=== PATIENT | female | born 2000 | race Caucasian/White ===

== ENCOUNTER 2022-11-13 10:44 | Emergency (ER) | payer OTHER ==
[2022-11-13 11:35] LABS: Absolute Lymphocytes (CBC) 1.5 K/uL (0.7-4.9); Hematocrit 38.8 % (36.0-45.0); Lymphocytes % 21.7 % (15.3-44.8); MCV 86.1 fL (80-100); MPV 8.1 fL (7.6-11.3); RBC Red Blood Cell Count 4.51 M/uL (3.86-4.86)
[2022-11-13 11:38] LABS: Urine Blood Negative (Negative); Urine Glucose Negative (Negative); Urine Protein Negative (Negative); Urine Specific Gravity 1.015 (1.005-1.030); Urine pH 6.5 (5.0-7.0)
[2022-11-13 11:44] LABS: Albumin 4.1 g/dL (3.4-5.0); Bilirubin Total 0.5 mg/dL (0.2-1.0); Potassium 3.6 mmol/L (3.5-5.1)
[2022-11-13 12:20] LABS: Urine Specific Gravity/Preg 1.015 (1.005-1.030)
--- NOTE | 2022-11-13 13:29 | RAD REPORT ---
EXAM DESCRIPTION: CTAbdomen Pelvis W Contrast - 11/13/2022 1:21 pm CLINICAL HISTORY: Abdominal pain. ABD PAIN COMPARISON: No comparisons TECHNIQUE: Biphasic CT imaging of the abdomen and pelvis was performed with 100 ml non-ionic IV cont rast. All CT scans are performed using dose optimization technique as appropriate and may include automated exposure control or mA/KV adjustment according to patient size. FINDINGS: The lung bases are clear. The liver, spleen, pancreas, adrenal glands and kidneys are within normal limits. 20 mm cyst superome dial pole left kidney. No bowel obstruction, free air, free fluid or abscess. There is a large amount of stool in the colon. The appendix is not identified as a discrete structure, however, no secondary findings of appendicit is are identified. No evidence of significant lymphadenopathy. No suspicious bony findings. IMPRESSION: No acute intra-abdominal or pelvic finding. Significant constipation.
--- NOTE | 2022-11-13 14:19 | EDPHYS ---
Physician Documentation [facility] Name: Ashwini Walden Age: 21 yrs Sex: Female : 2000 Arrival Date: 11/13/2022 Time: 10:46 Bed 19 Private MD: ED Physician Tyron Arteaga Historical: - Allergies: 11/13 11:04 No Known Allergies; aa5 - PMHx: 11:04 None; aa5 - PSHx: 11:04 None; aa5 - Immunization history:: Adult Immunizations unknown. - Social history:: Smoking status: Patient denies any tobacco usage or history of. Vital Signs: 11:03 BP 132 / 79; Pulse 57; Resp 16 S; Temp 97.7(TE); Pulse Ox 100% on R/A; Weight 52.16 kg aa5 (R); Height 5 ft. 8 in. (R); 12:41 BP 128 / 73; Pulse 60; Resp 18 S; Pulse Ox 100% on R/A; Pain 0/10; kc6 14:03 BP 123 / 83; Pulse 65; Resp 19 S; Pulse Ox 100% on R/A; kc6 11:03 Body Mass Index 17.49 (52.16 kg, 172.72 cm) aa5 12:41 Pain Scale: Adult kc6 MDM: 14:19 Patient medically screened. kdr 11/13 11:03 Order name: CBC with Diff; Complete Time: 11:52 kdr 11/13 11:03 Order name: CMP; Complete Time: 11:52 kdr 11/13 11:03 Order name: Lipase; Complete Time: 11:52 kdr 11/13 11:03 Order name: IV Saline Lock; Complete Time: 11:24 kdr 11/13 11:03 Order name: Labs collected and sent; Complete Time: 11:24 kdr 11/13 11:38 Order name: Urine Dipstick-Ancillary; Complete Time: 11:52 EDMS 11/13 11:45 Order name: Urine --Ancillary (enter results); Complete Time: 13:02 bd 11/13 13:03 Order name: CT Abd/Pelvis - IV Contrast Only; Complete Time: 14:18 kdr Administered Medications: No medications were administered Disposition Summary: 11/13/22 14:19 Discharge Ordered Location: Home kdr Problem: new kdr Symptoms: have improved kdr Condition: Stable kdr Diagnosis - Abdominal pain, Generalized kdr - Constipation kdr Followup: kdr - With: Private Physician - When: 2 - 3 days - Reason: If symptoms return, Further diagnostic work-up, Recheck today's complaints, Continuance of care, Re-evaluation by your physician Forms: - Medication Reconciliation Form kdr - Thank You Letter kdr - Antibiotic Education kdr - Prescription Opioid Use kdr Signatures: Dispatcher [employer] EDMS Tyron Arteaga MD MD kdr Beatriz Perdomo RN RN aa5 Corrections: (The following items were deleted from the chart) 11:04 11:04 Allergies: Aspirin; aa5 aa5
--- NOTE | 2022-11-13 14:19 | ER ---
Nurse's Notes [facility] Name: Ashwini Walden Age: 21 yrs Sex: Female : 2000 Arrival Date: 11/13/2022 Time: 10:46 Bed 19 Private MD: Diagnosis: Abdominal pain, Generalized;Constipation Presentation: 11/13 11:03 Chief complaint: Patient states: sent here from urgent care for abd pain and nausea. 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 Coronavirus screen: nausea. Ebola Screen: Patient denies travel to an Ebola-affected area in the 21 days before illness onset. Initial Sepsis Screen: Does the patient meet any 2 criteria? No. Patient's initial sepsis screen is negative. Does the patient have a suspected source of infection? No. Patient's initial sepsis screen is negative. Risk Assessment: Do you want to hurt yourself or someone else? Patient reports no desire to harm self or others. Onset of symptoms was October 2022. 11:03 Acuity: TARUN 3 aa5 11:03 Method Of Arrival: Ambulatory aa5 Historical: - Allergies: 11:04 No Known Allergies; aa5 - PMHx: 11:04 None; aa5 - PSHx: 11:04 None; aa5 - Immunization history:: Adult Immunizations unknown. - Social history:: Smoking status: Patient denies any tobacco usage or history of. Screenin:40 [facility] ED Fall Risk Assessment (Adult) History of falling in the last 3 months, kc6 including since admission No falls in past 3 months (0 pts) Confusion or Disorientation No (0 pts) Intoxicated or Sedated No (0 pts) Impaired Gait No (0 pts) Mobility Assist Device Used No (0 pt) Altered Elimination No (0 pt) Score/Fall Risk Level 0 - 2 = Low Risk Oriented to surroundings, Maintained a safe environment, Educated pt \T\ family on fall prevention, incl call for assistance when getting out of bed, Assessed \T\ reinforced patient's understanding of fall precautions, Hourly rounding (assess needs \T\ fall precautionary measures) done. Abuse screen: Denies threats or abuse. Denies injuries from another. Nutritional screening: No deficits noted. Tuberculosis screening: No symptoms or risk factors identified. Assessment: 12:40 General: Appears in no apparent distress. comfortable, Behavior is calm, cooperative, kc6 appropriate for age. Pain: Denies pain. Neuro: Level of Consciousness is awake, alert, obeys commands, Oriented to person, place, time, situation, Appropriate for age. Cardiovascular: Capillary refill < 3 seconds. Respiratory: Airway is patent Trachea midline Respiratory effort is even, unlabored, Respiratory pattern is regular, symmetrical. GI: Abdomen is flat, non-distended, Bowel sounds present X 4 quads. Abd is soft and non tender X 4 quads. Reports nausea, Patient currently denies diarrhea, vomiting. : No signs and/or symptoms were reported regarding the genitourinary system. EENT: No signs and/or symptoms were reported regarding the EENT system. Derm: No signs and/or symptoms reported regarding the dermatologic system. Skin is intact, Skin is pink, warm \T\ dry. Musculoskeletal: No signs and/or symptoms reported regarding the musculoskeletal system. Circulation, motion, and sensation intact. Capillary refill < 3 seconds, Range of motion: intact in all extremities. 13:40 Reassessment: Patient appears in no apparent distress at this time. No changes from kc6 previously documented assessment. Patient and/or family updated on plan of care and expected duration. Pain level reassessed. Patient is alert, oriented x 3, equal unlabored respirations, skin warm/dry/pink. Patient denies pain at this time. Patient states feeling better. Patient states symptoms have improved. Vital Signs: 11:03 BP 132 / 79; Pulse 57; Resp 16 S; Temp 97.7(TE); Pulse Ox 100% on R/A; Weight 52.16 kg aa5 (R); Height 5 ft. 8 in. (R); 12:41 BP 128 / 73; Pulse 60; Resp 18 S; Pulse Ox 100% on R/A; Pain 0/10; kc6 14:03 BP 123 / 83; Pulse 65; Resp 19 S; Pulse Ox 100% on R/A; kc6 11:03 Body Mass Index 17.49 (52.16 kg, 172.72 cm) aa5 12:41 Pain Scale: Adult kc6 ED Course: 10:46 Patient arrived in ED. mr 10:51 Tyron Arteaga MD is Attending Physician. kdr 11:03 Arm band placed on. aa5 11:04 Triage completed. aa5 11:24 CBC with Diff Sent. bc6 11:24 CMP Sent. bc6 11:24 Lipase Sent. bc6 11:24 Inserted saline lock: 20 gauge in right antecubital area, using aseptic technique. bc6 12:37 Bree Garcia, RN is Primary Nurse. kc6 12:40 Patient has correct armband on for positive identification. Bed in low position. Call kc6 light in reach. Side rails up X 1. Adult w/ patient. 13:25 CT Abd/Pelvis - IV Contrast Only In Process Unspecified. EDMS Administered Medications: No medications were administered Outcome: 14:19 Discharge ordered by . sae Signatures: Dispatcher [employer] EDMS Tyron Arteaga MD MD kdr Rivera, Mary mr PerdomoBeatriz severino RN RN Bree Ortega, RN RN kc6 Cherie Recio [facility] Corrections: (The following items were deleted from the chart) 11:04 11:04 Allergies: Aspirin; kwesi orosco
[2022-11-13 19:31] VITALS: TEMP 97.7; O2SAT 100
[2022-11-13 19:34] VITALS: BP 123/83
== END 2022-11-13 14:35 | disposition home or self-care (01) ==
LOC: ER 10:44
DX: R10.84 Generalized abdominal pain (principal); K59.00 Constipation, unspecified
CPT/HCPCS: 85025; 36415; 81025; 81003; 83690; 80053; 74177; Q9967